=== PATIENT | female | born 2000 | race Caucasian/White ===

== ENCOUNTER 2023-05-30 11:37 | Outpatient (CLI) | payer OTHER, SELFPAY | END 2023-05-30 11:38 | disposition home or self-care (01) | LOC: FBOREF 11:38 | PROVIDERS: Visit Provider Family Medicine | DX: E10.9 Type 1 diabetes mellitus without complications (principal); E78.5 Hyperlipidemia, unspecified; E55.9 Vitamin D deficiency, unspecified | CPT/HCPCS: 80048; 80061 ==

== ENCOUNTER 2024-08-19 16:50 | Outpatient (CLI) | payer OTHER, SELFPAY | END 2024-08-19 16:51 | disposition home or self-care (01) | PROVIDERS: PCP Family Medicine; Visit Provider Family Medicine | DX: E78.5 Hyperlipidemia, unspecified (principal); E10.9 Type 1 diabetes mellitus without complications; R53.83 Other fatigue; Z13.29 Encounter for screening for other suspected endocrine disorder | CPT/HCPCS: 80048; 80061; 84443 ==

== ENCOUNTER 2024-09-03 09:22 | Outpatient (CLI) | payer OTHER, SELFPAY ==
[2024-09-03 12:19] LABS: Chlamydia DNA Amplified* NOT DETECTED (No Detected); GC DNA Amplified* NOT DETECTED (No Detected)
== END 2024-09-03 09:23 | disposition home or self-care (01) ==
LOC: NFLDREF 09:24
PROVIDERS: PCP Family Medicine; Visit Provider Obstetrics & Gynecology
DX: N94.10 Unspecified dyspareunia (principal); Z11.3 Encounter for screening for infections with a predominantly sexual mode of transmission
CPT/HCPCS: 87491; 87591